=== PATIENT | male | born 1960 ===

== ENCOUNTER 2017-03-22 14:57 | Day surgery (SDC) | payer OTHER ==
[2017-03-22] MEDS ORDERED: Lidocaine 2% Inj (20ml) ONE (15:08)
[2017-03-22] MEDS ORDERED: Iodixanol 320 MG/ML 200 ML BOTTLE IV ONE (15:08)
[2017-03-22] MEDS ORDERED: Iodixanol 320 MG/ML 100 ML BOTTLE IV ONE (15:08)
[2017-03-22] MEDS ORDERED: Iohexol 350mgl/ml 50 ML ONE (15:08)
[2017-03-22] MEDS ORDERED: HEPARIN SODIUM/NS 2,000 ML IV ONE (15:09)
[2017-03-22] MEDS ORDERED: Nitroglycerin 50mg in D5W 0 MG/0 ML BOTTLE IV ONE (15:09)
[2017-03-22] MEDS ORDERED: Propofol 10 mg/ml Inj (20 ML) ONE (16:30)
[2017-03-22] MEDS ORDERED: Midazolam 2 MG/2 ML VIAL ONE ×3 (16:30→17:11)
[2017-03-22] MEDS ORDERED: ePHEDrine 50 mg/ml Inj ONE (16:31)
[2017-03-22] MEDS ORDERED: Sodium Chloride 0.9% 1,000 ML IV SCH (17:45)
[2017-03-23 00:30] VITALS: BP 123/72; PULSE 60; RESP 20; TEMP 97.5; O2SAT 98
--- NOTE | 2017-03-23 10:17 | CARD ---
APPROVED REPORT EKG Measurement Heart [id number] NM 180P64 [id number] <Conclusion> Sinus bradycardia PRWP V 1 - 5 NSSTW changes
--- NOTE | 2017-03-28 07:32 | CARDCATH ---
PROCEDURE DATE: PROCEDURES 1. Left anterior descending coronary artery balloon angioplasty and drug-eluting stent placement. 2. Ramus artery balloon angioplasty and drug-eluting stent placement. CLINICAL INDICATIONS 1. Non-ST elevation myocardial infarction. 2. Angina. 3. Coronary artery disease with triple-vessel disease. 4. Diabetes. 5. Hypertension. 6. Hyperlipidemia. 7. Anxiety disorder. REFERRING PHYSICIAN: Mariana Jo MD. PERFORMING PHYSICIAN: Dr. Corby Baires. BRIEF CLINICAL HISTORY: Garett Locke is a 56-year-old gentleman with history of diabetes, hypertension and hyperlipidemia, admitted to [facility] with non-ST elevation myocardial infarction. Cardiac catheterization revealed triple vessel disease with normal LV function. However, distal LAD target is not suitable for bypass surgery; hence, the patient is scheduled for staged coronary intervention. DESCRIPTION OF PROCEDURE: After informed consent, the patient was prepped and draped in the usual sterile fashion. A 2% lidocaine was given in the left groin for local anesthesia. Using micropuncture technique, a 6-inch sheath was introduced into left common femoral artery. A 6-Estonian XBLAD 3.5 guided catheter was engaged into left main coronary artery. Contrast injected and left coronary angiogram was performed. Left coronary angiogram revealed distal LAD 90% stenosis. Ramus has a 99% proximal occlusive stenosis. The patient was reloaded with aspirin, Plavix, and IV heparin. ACT was maintained above 250. Ramus artery was threaded with Runthrough coronary wire. The lesion was predilated using 2.0 x 15 compliant balloon, stented with 2.5 x 28 Xience Alpine drug-eluting stent. Excellent final angiographic results accomplished in ramus artery. LAD was threaded with Runthrough coronary wire. The distal LAD lesion was predilated using 2.0 x 15 compliant balloon, stented with 2.5 x 28 Xience Alpine drug-eluting stent. Excellent final angiographic results with brisk TOYA-3 flow noted. CONCLUSIONS: Successful coronary intervention of the left anterior descending and Ramus with drug-eluting stents. Patient will be scheduled for staged intervention of the right coronary artery as an outpatient. Corby Baires MD [facility] # [id number]
== END 2017-03-23 01:19 | disposition short-term general hospital (02) ==
LOC: CATH 14:57 → 2RSO 20:44 → CATH 03-23 01:19
PROVIDERS: ATTEND Internal Medicine Cardiovascular Disease
DX: I21.4 Non-ST elevation (NSTEMI) myocardial infarction (principal); I25.119 Atherosclerotic heart disease of native coronary artery with unspecified angina pectoris; E11.9 Type 2 diabetes mellitus without complications; I10 Essential (primary) hypertension; E78.5 Hyperlipidemia, unspecified; F41.9 Anxiety disorder, unspecified
CPT/HCPCS: 85175; 93005; C1725; C1760; C1769 ×2; C1874; C1887; C1894; C9600; C9601; J1644 ×2; J2001; J2250; J2704; J3010; J7030; J7040; Q9967

== ENCOUNTER 2017-07-16 06:08 | Observation (INO) | payer OTHER ==
[2017-07-12 11:04] VITALS: BMI 29.0
[2017-07-16] MEDS ORDERED: Lidocaine 2% Inj (20ml) ONE (07:01)
[2017-07-16 07:02] LABS: INR 1.14 (0.93-1.08); PROTHROMBIN TIME 13.2 SECONDS (9.4-12.5)
[2017-07-16] MEDS ORDERED: Phenylephrine 10 mg/ml Inj ONE (07:02)
[2017-07-16 07:03] LABS: PARTIAL THROMBOPLASTIN TIME 36.8 Seconds (25.1-36.5)
[2017-07-16] MEDS ORDERED: Midazolam 2 MG/2 ML VIAL ONE ×3 (07:03→07:34)
[2017-07-16] MEDS ORDERED: Iohexol 350mgl/ml 50 ML ONE (07:04)
[2017-07-16] MEDS ORDERED: Nitroglycerin 50mg in D5W 50 MG/250 ML BOTTLE IV ONE (07:04)
[2017-07-16] MEDS ORDERED: Iodixanol 320 MG/ML 100 ML BOTTLE IV ONE (07:04)
[2017-07-16] MEDS ORDERED: Iodixanol 320 MG/ML 200 ML BOTTLE IV ONE (07:04)
[2017-07-16] MEDS ORDERED: Propofol 10 mg/ml Inj (20 ML) ONE (07:21)
[2017-07-16] MEDS ORDERED: DiphenhydrAMINE 50 mg/ml Inj ONE (07:27)
[2017-07-16] MEDS ORDERED: Etomidate 20 mg/10ml Inj IV ONE (07:27)
[2017-07-16] MEDS ORDERED: Verapamil 2 ML ONE (08:09)
[2017-07-16] MEDS ORDERED: Bacitracin 500 Units/gm Oint Foilpak UD TOP ONE (08:47)
--- NOTE | 2017-07-16 09:06 | CP.PCM.CON ---
History of Present Illness - History of Present Illness History of Present Illness: 57 M Hx of CAD s/p LAD and Ramus SANTOS stents 03/2017 Here for staged PCI of RCA RCA PCI done with SANTOS Normal EF Other history DM, HTN, Hyperlipidemia, Paraxysmal A Fib, CVA (Ischemic) Continue Xarelto 20, ASA 81 and other home meds No plavix needed D/C in am if stable F/U with me next Wednesday 4pm F/U PMD Dr. Mariana Jo in 2 weeks Case asigned to House Staff for observation and discharge Past Patient History - Past Medical History & Family History Past Medical History?: Yes - Past Social History Smoking Status: Former Smoker - CARDIAC Hx Pacemaker: No - PULMONARY Hx Respiratory Disorders: No - NEUROLOGICAL Hx Paralysis: No - HEENT Hx HEENT Problems: No - RENAL Hx Chronic Kidney Disease: No - ENDOCRINE/METABOLIC Hx Diabetes Mellitus Type 2: Yes - HEMATOLOGICAL/ONCOLOGICAL Hx Blood Transfusions: No - INTEGUMENTARY Hx Dermatological Problems: No - MUSCULOSKELETAL/RHEUMATOLOGICAL Hx Musculoskeletal Disorders: Yes - GASTROINTESTINAL Hx Gastrointestinal Disorders: No - GENITOURINARY/GYNECOLOGICAL Hx Genitourinary Disorders: No - PSYCHIATRIC Hx Emotional Abuse: No Hx Physical Abuse: No Hx Substance Use: No - SURGICAL HISTORY Hx Surgeries: Yes - ANESTHESIA Hx Anesthesia Reactions: No Hx Malignant Hyperthermia: No Meds Allergies/Adverse Reactions: Allergies Allergy/AdvReac Type Severity Reaction Status Date / Time No Known Allergies Allergy Verified 04/27/17 19:24 - Medications Medications: Current Medications Acetaminophen (Tylenol 325mg Tab) 650 mg PO Q4H PRN PRN Reason: Pain, Mild (1-3) Aspirin (Ecotrin) 81 mg PO DAILY [facility] Atenolol (Tenormin) 25 mg PO DAILY [facility] Atorvastatin Calcium (Lipitor) 40 mg PO DIN [facility] Docusate Sodium (Colace) 100 mg PO BID [facility] Famotidine (Pepcid) 20 mg PO 1000,2200 [facility] Glipizide (Glucotrol Xl) 10 mg PO DAILY [facility] Sodium Chloride (Sodium Chloride 0.45%) 1,000 mls @ 70 mls/hr IV .[id number] [facility] Stop: 07/16/17 23:59 Insulin Human Lispro (Humalog Low) 0 units SC ACHS [facility] PRN Reason: Protocol Losartan Potassium (Cozaar) 25 mg PO DAILY [facility] Repaglinide (Prandin) 2 mg PO AC [facility] Rivaroxaban (Xarelto) 20 mg PO DAILY [facility] PRN Reason: Protocol Stop: 08/07/18 23:59 Results - Vital Signs Recent Vital Signs: Last Vital Signs Temp 97.6 F 07/16/17 06:30 Pulse 58 L 07/16/17 06:30 Resp 18 07/16/17 06:30 BP 143/75 07/16/17 06:30 Pulse Ox 98 07/16/17 06:30 - Labs Labs: Laboratory Results - last 24 hr 07/16/17 07/16/17 07/16/17 06:25 06:25 06:42 PT 13.2 H INR 1.14 H APTT 36.8 H POC Glucose (mg/dL) 162 H Blood Type A POSITIVE Antibody Screen Negative BBK History Checked Patient has bt
[2017-07-16] MEDS: GlipiZIDE 10 mg SR Tab PO SCH (10:00)
[2017-07-16] MEDS: Sodium Chloride 0.45% 1,000 ML IV SCH (10:58)
[2017-07-16] MEDS: Insulin Lispro (humaLOG) LOW Coverage SC SCH ×3 (11:30→22:24)
--- NOTE | 2017-07-16 12:02 | CARDCATH ---
PROCEDURE DATE: 07/16/2017 PROCEDURES: 1. Coronary angiogram. 2. Percutaneous intervention and drug-eluting stent placement of right coronary artery. REFERRING PHYSICIAN: Mariana Jo MD. PERFORMING PHYSICIAN: Corby Baires MD. CLINICAL INDICATIONS: 1. Angina. 2. Hypertension. 3. Coronary artery disease, status post LAD and ramus stents. 4. Hyperlipidemia. 5. Diabetes. 6. Paroxysmal atrial fibrillation. 7. History of CVA. DESCRIPTION OF PROCEDURE: After informed consent, the patient was prepped and draped in the usual sterile fashion. A 2% lidocaine was given in the right wrist for local anesthesia. Using micropuncture technique, 6-Slovenian sheath was introduced into right radial artery. A 6-Slovenian __01:02___ catheter was engaged into left main coronary artery. Contrast injected and left coronary angiogram was done. Left main LAD, ramus and left circumflex coronary arteries are patent. Prior stent in the LAD and ramus are patent. The patient was preloaded with aspirin, Plavix and IV heparin. ACT was maintained above 250. JR4 6-Slovenian diagnostic catheter engaged into right coronary artery. Contrast injected and right coronary angiogram was done. Right coronary angiogram has revealed mid 98 to 99% stenosis of the right coronary artery. Right coronary artery was a dominant artery. The lesion threaded with Runthrough coronary wire. Predilated with 2.5 x 15 compliant balloon. Stented with 2.5 x 28 Xience Alpine drug-eluting stent. Excellent final angiographic results with brisk TOYA 3 flow noted. The sheath removed and hemostat was accomplished using Terumo radial band. The patient will be transferred to observation unit and will be discharged in the morning. Corby Baires MD
[2017-07-16] MEDS ORDERED: Bacitracin 500 Units/gm Oint Foilpak UD ONE (12:59)
--- NOTE | 2017-07-16 14:29 | CARD ---
APPROVED REPORT EKG Measurement Heart [id number] [place] 178P50 [id number] <Conclusion> Marked sinus bradycardia Otherwise normal ECG
--- NOTE | 2017-07-16 14:43 | CP.PCM.HP ---
<Bimal Bhat - Last Filed: 07/16/17 14:32> History of Present Illness - History of Present Illness History of Present Illness: CC: S/P LHC HPI: 57 year old male with past medical history of DM, HTN, HLD, Paroxysmal atrial fibrillation, ischemic CVA, and CAD who presents s/p [facility] with cardiology. Patient underwent left heart catheritization today with Dr. Baires and had placement of RCA stent. Patient reports cath was elective procedure. Prior to presentation patient reported no symptoms of chest pain or shortness of breath. Patient denies chest pain, shortness of breath, abdominal pain, headache, change in vision, nasal drainage, nausea, vomiting, weakness, numbness at time of interview. PMH: CAD s/p SANTOS stents x2 in 03/2017, DM2, HTN, HLD, Paroxysmal AFib, CVA PSH: cholecystectomy, appendectomy SOCHX: Denies tobacco, ETOH and ID - Lives at home with significant other ALL: NKDA MEDS: MAR reviewed PMD: Dr. Mariana Jo Flower Planter: Dr. Baires Present on Admission - Present on Admission Any Indicators Present on Admission: No Review of Systems - Review of Systems All systems: reviewed and no additional remarkable complaints except (as mentioned in HPI) Past Patient History - Past Medical History & Family History Past Medical History?: Yes - Past Social History Smoking Status: Former Smoker - CARDIAC Hx Pacemaker: No - PULMONARY Hx Respiratory Disorders: No - NEUROLOGICAL Hx Paralysis: No - HEENT Hx HEENT Problems: No - RENAL Hx Chronic Kidney Disease: No - ENDOCRINE/METABOLIC Hx Diabetes Mellitus Type 2: Yes - HEMATOLOGICAL/ONCOLOGICAL Hx Blood Transfusions: No - INTEGUMENTARY Hx Dermatological Problems: No - MUSCULOSKELETAL/RHEUMATOLOGICAL Hx Musculoskeletal Disorders: Yes - GASTROINTESTINAL Hx Gastrointestinal Disorders: No - GENITOURINARY/GYNECOLOGICAL Hx Genitourinary Disorders: No - PSYCHIATRIC Hx Emotional Abuse: No Hx Physical Abuse: No Hx Substance Use: No - SURGICAL HISTORY Hx Surgeries: Yes - ANESTHESIA Hx Anesthesia Reactions: No Hx Malignant Hyperthermia: No Meds Allergies/Adverse Reactions: Allergies Allergy/AdvReac Type Severity Reaction Status Date / Time No Known Allergies Allergy Verified 04/27/17 19:24 Physical Exam - Constitutional Appears: No Acute Distress - Head Exam Head Exam: ATRAUMATIC, NORMAL INSPECTION, NORMOCEPHALIC - Eye Exam Eye Exam: EOMI, PERRL - Neck Exam Neck exam: Positive for: Full Rom - Respiratory Exam Respiratory Exam: Clear to Auscultation Bilateral, NORMAL BREATHING PATTERN. absent: Rhonchi, Wheezes - Cardiovascular Exam Cardiovascular Exam: Bradycardia, REGULAR RHYTHM. absent: Systolic Murmur - GI/Abdominal Exam GI & Abdominal Exam: Normal Bowel Sounds, Soft. absent: Guarding, Rigid, Tenderness - Extremities Exam Extremities exam: Positive for: normal capillary refill, pedal pulses present. Negative for: calf tenderness Additional comments: Pulse 2+ in UE b/l, LE b/l, All ext warm to touch with appropriate capillary refill - Neurological Exam Neurological exam: Alert, Oriented x3 Additional comments: Motor and sensory grossly intact, able to follow commands, move all extremities past midline - Psychiatric Exam Psychiatric exam: Normal Affect, Normal Mood - Skin Skin Exam: Dry, Warm Results - Vital Signs Recent Vital Signs: Last Vital Signs Temp 97.6 F 07/16/17 12:00 Pulse 41 L 07/16/17 12:30 Resp 12 07/16/17 12:30 BP 97/63 L 07/16/17 12:30 Pulse Ox 98 07/16/17 06:30 - Labs Labs: Laboratory Results - last 24 hr 07/16/17 07/16/17 07/16/17 06:25 06:25 06:42 PT 13.2 H INR 1.14 H APTT 36.8 H POC Glucose (mg/dL) 162 H Blood Type A POSITIVE Antibody Screen Negative BBK History Checked Patient has bt 07/16/17 11:05 PT INR APTT POC Glucose (mg/dL) 105 Blood Type Antibody Screen BBK History Checked Assessment & Plan - Assessment and Plan (Free Text) Assessment: 57 year old male with past medical history of DM, HTN, HLD, Paroxysmal atrial fibrillation, ischemic CVA, and CAD who presents s/p LHC with cardiology. Patient to be admitted overnight for observation and medical management. Plan: s/p LHC - Patient s/p LHC with Dr. Baires this AM - Placement of RCA stent today - Previous SANTOS x2 in 03/2017 - Cardiology consulted and following, f/u recs and orders Hx DM2 - ISS - ACHS Hx of HTN - Patient noted to be hypotensive at time - Hold BP medications at this time - Continue to monitor Hx of HLD - continue home medications Hx of Paroxysmal Atrial fib - Patient with NSR, bradycardia - Continue with telemetry observation GI/DVT ppx - Pepcid - SCD Case and plan discussed with attending - Date & Time Date: 07/16/17 Time: 14:34 <Joesph Sherman - Last Filed: 07/16/17 14:57> Results - Vital Signs Recent Vital Signs: Last Vital Signs Temp 97.6 F 07/16/17 12:00 Pulse 41 L 07/16/17 12:30 Resp 12 07/16/17 12:30 BP 97/63 L 07/16/17 12:30 Pulse Ox 98 07/16/17 06:30 - Labs Labs: Laboratory Results - last 24 hr 07/16/17 07/16/17 07/16/17 06:25 06:25 06:42 PT 13.2 H INR 1.14 H APTT 36.8 H POC Glucose (mg/dL) 162 H Blood Type A POSITIVE Antibody Screen Negative BBK History Checked Patient has bt 07/16/17 11:05 PT INR APTT POC Glucose (mg/dL) 105 Blood Type Antibody Screen BBK History Checked Attending/Attestation - Attestation I have personally seen and examined this patient.: Yes I have fully participated in the care of the patient.: Yes I have reviewed all pertinent clinical information: Yes Notes (Text): 07/16/17 14:47 57 year old male diabetes, dyslipidemia, hypertension, CAD and paroxysmal afib who presented for cardiac catherization with Dr. Baires. He is admitted to telemetry unit post procedure for observation. Patient appears comfortable without any complaints. Vitals reviewed; BP 100/48. HR 41. Review of prior visits shows HR in bradycardic range. Continue with ivf. Will resume home medications per cardiology except atenolol for now. BP medications with parameters. TSH level ordered for AM. Likely d/c in AM if stable. Joesph Sherman MD Hospitalist.
[2017-07-16] MEDS ORDERED: Pneumococcal 23-Valent Vaccine IM ONE (21:47)
[2017-07-17] MEDS: Sodium Chloride 0.45% 1,000 ML IV SCH (00:24)
[2017-07-17 06:45] VITALS: TEMP 98.6; O2SAT 96
[2017-07-17 07:12] LABS: BASO # 0.01 K/mm3 (0.0-2.0); BASO % 0.2 % (0.0-3.0); EOS # 0.3 (0.0-0.7); EOS % 4.9 % (1.5-5.0); GRAN # 3.56 (1.4-6.5); GRAN % 66.3 % (50.0-68.0); HEMOGLOBIN 14.6 g/dL (14.0-18.0); LYMPH # 1.1 (1.2-3.4); LYMPH % 19.8 % (22.0-35.0); MEAN CELL VOLUME 94.3 fl (80.0-105.0); MEAN PLATELET VOLUME 10.5 fl (7.0-11.0); MONO # 0.5 (0.1-0.6); MONO % 8.8 % (1.0-6.0); RBC 4.56 10^6/uL (3.5-6.1); RED CELL DISTRIBUTION WIDTH 11.7 % (11.5-14.5); WHITE BLOOD COUNT 5.4 10^3/ul (4.5-11.0)
[2017-07-17 08:36] LABS: BLOOD UREA NITROGEN 8 mg/dL (7-21); CALCIUM 8.6 mg/dL (8.4-10.5); GFR AFRICAN-AMERICAN > 60; GFR NON-AFRICAN AMERICAN > 60
[2017-07-17] MEDS: Insulin Lispro (humaLOG) LOW Coverage SC SCH ×3 (08:59→13:48)
[2017-07-17] MEDS: GlipiZIDE 10 mg SR Tab PO SCH (09:52)
[2017-07-17 12:25] VITALS: BP 167/92; PULSE 152
[2017-07-17 14:07] VITALS: RESP 16
--- NOTE | 2017-07-17 19:33 | CP.PCM.DIS ---
<HomeBimal - Last Filed: 07/17/17 19:28> Provider - Provider Date of Admission: 07/16/17 08:51 Attending physician: Suraj Cortes MD Primary care physician: Mariana Jo MD Consults: Cardiology: Dr. Baires Time Spent in preparation of Discharge (in minutes): 35 Diagnosis - Discharge Diagnosis (1) Bradycardia Status: Resolved (2) Hypotension Status: Resolved (3) Chest pain Status: Resolved (4) Status post left heart catheterization Status: Resolved Hospital Course - Lab Results Lab Results: Most Recent Lab Values WBC 5.4 10^3/ul (4.5-11.0) 07/17/17 06:30 RBC 4.56 10^6/uL (3.5-6.1) 07/17/17 06:30 Hgb 14.6 g/dL (14.0-18.0) 07/17/17 06:30 Hct 43.0 % (42.0-52.0) 07/17/17 06:30 MCV 94.3 fl (80.0-105.0) 07/17/17 06:30 MCH 32.0 pg (25.0-35.0) 07/17/17 06:30 MCHC 34.0 g/dl (31.0-37.0) 07/17/17 06:30 RDW 11.7 % (11.5-14.5) 07/17/17 06:30 Plt Count 140 10^3/uL (120.0-450.0) 07/17/17 06:30 MPV 10.5 fl (7.0-11.0) 07/17/17 06:30 Gran % 66.3 % (50.0-68.0) 07/17/17 06:30 Lymph % (Auto) 19.8 % (22.0-35.0) L 07/17/17 06:30 [place] % (Auto) 8.8 % (1.0-6.0) H 07/17/17 06:30 Eos % (Auto) 4.9 % (1.5-5.0) 07/17/17 06:30 Baso % (Auto) 0.2 % (0.0-3.0) 07/17/17 06:30 Gran # 3.56 (1.4-6.5) 07/17/17 06:30 Lymph # (Auto) 1.1 (1.2-3.4) L 07/17/17 06:30 [place] # (Auto) 0.5 (0.1-0.6) 07/17/17 06:30 Eos # (Auto) 0.3 (0.0-0.7) 07/17/17 06:30 Baso # (Auto) 0.01 K/mm3 (0.0-2.0) 07/17/17 06:30 PT 13.2 SECONDS (9.4-12.5) H 07/16/17 06:25 INR 1.14 (0.93-1.08) H 07/16/17 06:25 APTT 36.8 Seconds (25.1-36.5) H 07/16/17 06:25 Sodium 143 mmol/L (132-148) 07/17/17 06:30 Potassium 3.5 mmol/L (3.6-5.0) L 07/17/17 06:30 Chloride 103 mmol/L (98-107) 07/17/17 06:30 Carbon Dioxide 29 mmol/L (21-33) 07/17/17 06:30 Anion Gap 15 (10-20) 07/17/17 06:30 BUN 8 mg/dL (7-21) 07/17/17 06:30 Creatinine 0.9 mg/dl (0.8-1.5) 07/17/17 06:30 Est GFR ( Amer) > 60 07/17/17 06:30 Est GFR (Non-Af Amer) > 60 07/17/17 06:30 POC Glucose (mg/dL) 166 mg/dL (65-110) H 07/17/17 11:31 Random Glucose 99 mg/dL (70-110) 07/17/17 06:30 Calcium 8.6 mg/dL (8.4-10.5) 07/17/17 06:30 TSH 3rd Generation 1.19 mIU/mL (0.46-4.68) 07/17/17 06:30 Blood Type A POSITIVE 07/16/17 06:25 Antibody Screen Negative 07/16/17 06:25 BBK History Checked Patient has bt 07/16/17 06:25 - Hospital Course Hospital Course: 57 year old male with past medical history of DM, HTN, HLD, Paroxysmal atrial fibrillation, ischemic CVA, and CAD who presents s/p C with cardiology. Patient underwent elective left heart catherization with Dr. Baires and had placement of RCA stent. Patient was noted to be hypotensive and bradycardic post procedure. Patient was admitted to telemetry floor for close observation and medical management. Patient anti-hypertensive medications were held. TSH was checked and found to be within normal range. Cardiology was consulted and evaluated the patient to be safe for discharge after 24 hours of observation. Discharge planning including medication reconciliation, outpatient follow up and signs and symptoms to be aware for return to nearest ED were discussed. Patient was in understanding and agreeable. At time of discharge patient was hemodynamically stable and appropriate for discharge with planned outpatient follow up. See patient full chart for further details. - Date & Time of H&P Date of H&P: 07/16/17 Time of H&P: 14:32 Discharge Exam - Head Exam Head Exam: ATRAUMATIC, NORMAL INSPECTION, NORMOCEPHALIC - Eye Exam Eye Exam: EOMI, PERRL - ENT Exam ENT Exam: Mucous Membranes Dry - Neck Exam Neck exam: Full Rom - Respiratory Exam Respiratory Exam: Clear to PA & Lateral, NORMAL BREATHING PATTERN. absent: Rales, Wheezes - Cardiovascular Exam Cardiovascular Exam: REGULAR RHYTHM, +S1, +S2 - GI/Abdominal Exam GI & Abdominal Exam: Normal Bowel Sounds, Soft. absent: Tenderness - Extremities Exam Extremities exam: normal capillary refill, pedal pulses present - Neurological Exam Neurological exam: Alert, CN II-XII Intact, Normal Gait, Oriented x3 - Psychiatric Exam Psychiatric exam: Normal Affect, Normal Mood - Skin Skin Exam: Dry, Warm Discharge Plan - Discharge Medications Prescriptions: Atenolol [Tenormin] 25 mg PO DAILY #14 tab Clopidogrel [Plavix] 75 mg PO DAILY #7 tab - Follow Up Plan Condition: GOOD Disposition: HOME/ ROUTINE Instructions: Atrial Fibrillation (DC), Cardiac Catheterization (DC), Coronary Stenting (DC), Chest Pain (DC) Additional Instructions: Follow up with primary care physician within 1-2 weeks upon discharge Follow up with Dr. Baires in his office on WednesdayJuly 23, call his office to confirm appointment Take medications as prescribed to you - Plavix 75mg PO 1 Tab for the next 7 days - Atenolol 12.5mg PO 1 Tab Daily Return to the nearest emergency department if you experience chest pain, shortness of breath, persistent fever, headache, weakness, numbness Referrals: Corby Baires MD [Staff Provider] - Mariana Jo MD [Primary Care Provider] - <Heath Cortez - Last Filed: 07/18/17 10:30> Provider - Provider Date of Admission: 07/16/17 08:51 Attending physician: Suraj Cortes MD Primary care physician: Mariana Jo MD Hospital Course - Lab Results Lab Results: Most Recent Lab Values WBC 5.4 10^3/ul (4.5-11.0) 07/17/17 06:30 RBC 4.56 10^6/uL (3.5-6.1) 07/17/17 06:30 Hgb 14.6 g/dL (14.0-18.0) 07/17/17 06:30 Hct 43.0 % (42.0-52.0) 07/17/17 06:30 MCV 94.3 fl (80.0-105.0) 07/17/17 06:30 MCH 32.0 pg (25.0-35.0) 07/17/17 06:30 MCHC 34.0 g/dl (31.0-37.0) 07/17/17 06:30 RDW 11.7 % (11.5-14.5) 07/17/17 06:30 Plt Count 140 10^3/uL (120.0-450.0) 07/17/17 06:30 MPV 10.5 fl (7.0-11.0) 07/17/17 06:30 Gran % 66.3 % (50.0-68.0) 07/17/17 06:30 Lymph % (Auto) 19.8 % (22.0-35.0) L 07/17/17 06:30 [place] % (Auto) 8.8 % (1.0-6.0) H 07/17/17 06:30 Eos % (Auto) 4.9 % (1.5-5.0) 07/17/17 06:30 Baso % (Auto) 0.2 % (0.0-3.0) 07/17/17 06:30 Gran # 3.56 (1.4-6.5) 07/17/17 06:30 Lymph # (Auto) 1.1 (1.2-3.4) L 07/17/17 06:30 [place] # (Auto) 0.5 (0.1-0.6) 07/17/17 06:30 Eos # (Auto) 0.3 (0.0-0.7) 07/17/17 06:30 Baso # (Auto) 0.01 K/mm3 (0.0-2.0) 07/17/17 06:30 PT 13.2 SECONDS (9.4-12.5) H 07/16/17 06:25 INR 1.14 (0.93-1.08) H 07/16/17 06:25 APTT 36.8 Seconds (25.1-36.5) H 07/16/17 06:25 Sodium 143 mmol/L (132-148) 07/17/17 06:30 Potassium 3.5 mmol/L (3.6-5.0) L 07/17/17 06:30 Chloride 103 mmol/L (98-107) 07/17/17 06:30 Carbon Dioxide 29 mmol/L (21-33) 07/17/17 06:30 Anion Gap 15 (10-20) 07/17/17 06:30 BUN 8 mg/dL (7-21) 07/17/17 06:30 Creatinine 0.9 mg/dl (0.8-1.5) 07/17/17 06:30 Est GFR ( Amer) > 60 07/17/17 06:30 Est GFR (Non-Af Amer) > 60 07/17/17 06:30 POC Glucose (mg/dL) 166 mg/dL (65-110) H 07/17/17 11:31 Random Glucose 99 mg/dL (70-110) 07/17/17 06:30 Calcium 8.6 mg/dL (8.4-10.5) 07/17/17 06:30 TSH 3rd Generation 1.19 mIU/mL (0.46-4.68) 07/17/17 06:30 Blood Type A POSITIVE 07/16/17 06:25 Antibody Screen Negative 07/16/17 06:25 BBK History Checked Patient has bt 07/16/17 06:25 Attending/Attestation - Attestation I have personally seen and examined this patient.: Yes I have fully participated in the care of the patient.: Yes I have reviewed all pertinent clinical information, including history, physical exam and plan: Yes Notes (Text): 07/18/17 10:26 Medical record note made by the resident after discussion with my direction and input after the patient was personally seen and examined by me. I have reviewed the chart and agree that the record accurately reflects by personal performance of the history, physical exam, data review, and medical decision-making, in the course for the patient. I have also personally directed the plan of care. 57 year old male with past medical history of CAD, paroxysmal afib, hypertension and diabetes who presented for elective cath , underwent S/p RCA stent by Dr. Baires.Patient was monitored overnight in telemetry.He was found to have bradycardia, HR was around 42.His Atenolol was held and Heart rate has improved.Patient is asymptomatic.After discussion with , his Atenolol dose has been reduced to 12.5 mg po daily.He is ambulatory.He will be discharged home and will follow up with PCP and . Management plan was discussed in detail with patient. Education was provided.
--- NOTE | 2017-07-18 10:22 | CARD ---
APPROVED REPORT EKG Measurement Heart [id number] [place] 170P54 [id number] <Conclusion> Sinus bradycardia No change except the rate has increased
--- NOTE | 2017-07-18 10:35 | CARD ---
APPROVED REPORT EKG Measurement Heart [id number] [place] 170P61 [id number] <Conclusion> Normal sinus rhythm Normal ECG
== END 2017-07-17 15:09 | disposition short-term general hospital (02) ==
LOC: CATH 06:08 → ERH 08:51 → 2RNO 09:56
PROVIDERS: ADMIT Internal Medicine; ATTEND Internal Medicine
DX: I25.119 Atherosclerotic heart disease of native coronary artery with unspecified angina pectoris (principal); E11.9 Type 2 diabetes mellitus without complications; E78.5 Hyperlipidemia, unspecified; I10 Essential (primary) hypertension; I48.0 Paroxysmal atrial fibrillation; Z79.01 Long term (current) use of anticoagulants; Z86.73 Personal history of transient ischemic attack (TIA), and cerebral infarction without residual deficits; Z87.891 Personal history of nicotine dependence
CPT/HCPCS: 36415; 80048; 82948; 84443; 85025; 85175; 85610; 85730; 86850; 86900; 93005; 93454; C1725; C1769; C1874; C1887; C1894; C9600; G0378; J1200; J1644; J2250; J2370; J2704; J3010; J7030; Q9966; Q9967